=== PATIENT | female | born 1990 | race Caucasian/White ===

== ENCOUNTER 2019-07-17 11:10 | Emergency (ER) | payer OTHER, SELFPAY ==
[2019-07-17 11:25] VITALS: BP 121/59; PULSE 86; RESP 15; TEMP 36.4; O2SAT 99; BMI 23.6
--- NOTE | 2019-07-17 11:45 | ED.EAR ---
HPI - Ear Problem <OTIS Villafuerte - Last Filed: 07/17/19 12:32> General Chief complaint: Ear Stated complaint: pain in ears Time Seen by Provider: 07/17/19 11:31 Source: patient Mode of arrival: Ambulatory Limitations: no limitations History of Present Illness HPI Narrative: The patient is a 29-year-old female nonsmoker with history of hypertension who presents with a chief complaint of bilateral ear pain. She states that her right ear started hurting 3 days ago, left ear started hurting this morning. She has not taken anything at home to feel better. She has not had ear infections she was child. No fevers nausea vomiting diarrhea no sore throat. Slight nasal congestion. Denies any cough. Denies any shortness of breath. Related Data Allergies Allergy/AdvReac Type Severity Reaction Status Date / Time No Known Drug Allergies Allergy Verified 07/17/19 11:33 Review of Systems <OTIS Villafuerte - Last Filed: 07/17/19 12:32> Review of Systems Narrative: GENERAL: Denies chills, fatigue, malaise, fever, sweats. HEENT: See HPI RESPIRATORY: Denies dyspnea, cough, wheezing, hemoptysis, sputum. CARDIOVASCULAR: Denies chest pain, palpitations, orthopnea, edema, GASTROINTESTINAL: Denies nausea, vomiting, abdominal pain, diarrhea, constipation, melena. : Denies dysuria, frequency, incontinence, hematuria, urinary retention. MUSCULOSKELETAL: denies weakness, joint pain, or bony pain SKIN: Denies rash, skin lesions, or other NEUROLOGIC: Denies weakness, headache, numbness, change in speech, confusion, seizures, incoordination. PSYCHIATRIC: No concerning psychosocial issues. 12 point review of systems is negative except for those stated above Patient History <OTIS Villafuerte - Last Filed: 07/17/19 12:32> Social History Smoking Status: Unknown if ever smoked Smoking Status: Unknown if ever smoked alcohol intake frequency: holidays/special occasions only Substance Use Type: does not use Exam <OTIS Villafuerte - Last Filed: 07/17/19 12:32> Narrative Exam Narrative: GENERAL: This is a well-nourished, well-developed patient, in no acute distress HEAD: Atraumatic. Normocephalic. No temporal or scalp tenderness. EYES: Pupils equal round and reactive. Extraocular motions intact. No scleral icterus. No injection or drainage. ENT: Nose without bleeding, purulent drainage or septal hematoma. Throat without erythema, tonsillar hypertrophy or exudate. Uvula midline. Airway patent. Bilateral TMs pearly will. Bilateral ear canals within normal limits. NECK: Trachea midline. No JVD or lymphadenopathy. Supple, nontender, no meningeal signs. CARDIOVASCULAR: Regular rate and rhythm without murmurs, gallops, or rubs. RESPIRATORY: Clear to auscultation. Breath sounds equal bilaterally. No wheezes, rales, or rhonchi. No cough. No increased respiratory effort. No accessory muscle use. EXTREMITIES: No clubbing, cyanosis, or edema. No joint tenderness, effusion, or edema noted. BACK: Nontender without deformity or crepitance. No flank tenderness. NEURO: AOx3. SKIN: No rash or erythema on visible skin Initial Vital Signs Initial Vital Signs: Vital Signs Temperature 97.6 F 07/17/19 11:25 Pulse Rate 86 07/17/19 11:25 Respiratory Rate 15 07/17/19 11:25 Blood Pressure 121/59 L 07/17/19 11:25 Pulse Oximetry 99 07/17/19 11:25 <Juan Maza DO - Last Filed: 07/17/19 19:26> Initial Vital Signs Initial Vital Signs: Vital Signs Temperature 97.6 F 07/17/19 11:25 Pulse Rate 86 07/17/19 11:25 Respiratory Rate 15 07/17/19 11:25 Blood Pressure 121/59 L 07/17/19 11:25 Pulse Oximetry 99 07/17/19 11:25 Course <DANYEL Villafuerte-BC - Last Filed: 07/17/19 12:32> Vital Signs Vital signs: Vital Signs - 8 hr 07/17/19 11:25 Temperature 97.6 F Pulse Rate [Left] 86 Respiratory Rate 15 Blood Pressure [Left Arm] 121/59 L Pulse Oximetry 99 <Juan Maza DO - Last Filed: 07/17/19 19:26> Vital Signs Vital signs: Vital Signs - 8 hr 07/17/19 11:25 Temperature 97.6 F Pulse Rate [Left] 86 Respiratory Rate 15 Blood Pressure [Left Arm] 121/59 L Pulse Oximetry 99 Medical Decision Making <Kathy Leon, [employer] - Last Filed: 07/17/19 12:32> [facility] Narrative Medical decision making narrative: The patient is a 29-year-old female who presents with a chief complaint of bilateral ear pain. She has no signs of infection on exam, is hemodynamically stable, afebrile. Discussed at length conservative measures such as Flonase, Quinton med sinus rinse, etcetera. Discussed at length dey following up with primary care provider, come back to the emergency department for any acute concerns. Patient has no questions or concerns upon discharge and states understanding of return precautions as well as follow-up care. Discharge Plan Departure Patient Disposition: Home Clinical Impression: Otalgia of both ears Discharge Date/Time: 07/17/19 11:52 Instructions: DI for Ear Pain-Adult Activity Restrictions/Additional Instructions: Thank you for trusting us with your care today. Your exam does not show any signs of infection. Please use [id number] remedies such as Flonase, Quinton med sinus rinse or Neti pot, as well as [id number] decongestants a for high blood pressure Please follow-up with primary care provider in the next few days Please monitor for signs of fever, worsening, inability keep down fluids come back to the emergency department for any acute concerns Referrals: Jerald Carreno [Non-Staff] - Stand Alone Forms: Work Release Note
--- NOTE | 2019-07-17 11:51 | PC.NURSE ---
first contact with patient is discharge. JJ Leon assessed her ears
== END 2019-07-17 11:52 | disposition home or self-care (01) ==
PROVIDERS: Emergency Provider Nurse Practitioner Family
DX: H92.03 Otalgia, bilateral (principal)
CPT/HCPCS: 99281